=== PATIENT | female | born 1975 | race Caucasian/White ===

== ENCOUNTER → 2016-08-23 | Outpatient (CLI) | payer MEDICAID ==
[2016-08-23 14:38] VITALS: BP 110/57; PULSE 104; RESP 14; TEMP 98.5; BMI 36.2
[2016-08-23 15:32] LABS: CH 25.2; CHCM 31.3; HDW 3.04; HGB 11.2 gm/dL (11.4-16.0); Hypochromasia Moderate; MCH 25.1 pg (25.0-35.0); MCHC 31.1 g/dL (31.0-37.0); MCV 80.8 fL (80.0-100.0); Mean Platelet Volume 8.6; RBC 4.45 m/uL (3.80-5.40); RDW 15.7 % (11.5-15.5); WBC 6.2 k/uL (3.8-10.6)
[2016-08-23 15:38] LABS: ALT 45 U/L (9-52); AST 29 U/L (14-36); Alkaline Phosphatase 70 U/L (38-126); Anion Gap 10 mmol/L; Blood Urea Nitrogen 14 mg/dL (7-17); Calcium 9.2 mg/dL (8.4-10.2); Carbon Dioxide 27 mmol/L (22-30); Chloride 105 mmol/L (98-107); Cholesterol 145 mg/dL (<200); Glucose 84 mg/dL (74-99); HDL Cholesterol 44 mg/dL (40-60); Iron 39 ug/dL (37-170); Magnesium 2.2 mg/dL (1.6-2.3); Non-African American GFR(MDRD) >60 (>60 ml/min/1.73 sqM); Phosphorous 4.4 mg/dL (2.5-4.5); Potassium 4.1 mmol/L (3.5-5.1); Sodium 142 mmol/L (137-145); Total Bilirubin 0.4 mg/dL (0.2-1.3); Total Protein 6.9 g/dL (6.3-8.2); Triglycerides 302 mg/dL (<150)
[2016-08-23 15:40] LABS: Prothrombin Time 10.4 sec (9.0-12.0)
[2016-08-23 15:47] LABS: Partial Thromboplastin Time 22.2 sec (22.0-30.0)
[2016-08-23 15:48] LABS: % Iron Saturation 8.8 % (20-50); Prealbumin 27 mg/dL (18-36); Total Iron Binding Capacity 445 ug/dL (265-497)
[2016-08-23 16:43] LABS: Vitamin B12 >1000 pg/mL (239-931)
[2016-08-23 19:46] LABS: Hemoglobin A1C 5.6 % (4.2-6.1)
[2016-08-26 13:48] LABS: Selenium 118 mcg/L (63-160)
--- NOTE | 2016-10-01 19:43 | P.PN ---
Progress Note - Text DATE OF SERVICE: 08/23/2016 CHIEF COMPLAINT: Follow-up gastric bypass. HISTORY OF PRESENT ILLNESS: Letty Little is a 41-year-old female status post Ashwini-en-Y gastric bypass in September 21, 2015. She is almost 11 to 12 months out. She reports that she has troubles with eating bread. She is avoiding eating pastas. She is no longer actually checking her blood sugars. Approximately a year ago she was diagnosed with diabetes and now she reports complete resolution of her symptoms. She denies any constipation; however, she does report hair loss including fatigue. Her protein intake is averaging about 60 grams daily. Her main concerns now also include moderate redundant skin with panniculitis. Her initial weight was 325 pounds for her 5 foot 6 frame. Her ideal body weight is 154 pounds. Today she comes in weighing 224 pounds. She has lost 101 pounds. Percent excess weight loss is 69% after one year. Body mass index reduced from 52.6 down to 36.3. Total BMI point reduction is 16.3. She reports resolution of osteoarthritis including diabetes as well as obstructive sleep apnea. She now presents for further evaluation and management. Since her last visit in December 2015 now 8 months ago she has lost an additional 16 pounds. PAST MEDICAL HISTORY: 1. Osteoarthritis of the bilateral ankles. 2. Osteoarthritis of the knee. 3. Restless leg syndrome. 4. Panniculitis. 5. Biliary dyskinesia. 6. Gastroesophageal reflux disease. 7. Migraines. 8. Morbid obesity. 9. Diabetes type 2, [id number]. 10. Obstructive sleep apnea. PAST SURGICAL HISTORY: 1. D&C x2. 2. section. 3. Upper endoscopy. 4. Status post Ashwini-en-Y gastric bypass. MEDICATIONS: 1. Restoril. 2. Mirapex. 3. Nystatin powder. 4. Fioricet. 5. Ultram. 6. Sumatriptan. 7. Rogers. ALLERGIES: Denies. SOCIAL HISTORY: Lifelong nontobacco user. FAMILY HISTORY: Denies any Crohn's disease or ulcerative colitis in her family. Denies any gastrointestinal cancers. She denies any family history of gallbladder disease. She also denies any family history of lupus or DVTs. REVIEW OF SYSTEMS: CONSTITUTIONAL: Total weight loss of 101 pounds, highest weight 325 pounds. Her ideal body weight is 154 pounds. She lost 101 pounds. Percent excess 59%. Body mass index reduced from 52.6 down to 36.3. BMI point reduction of 16.3. She is only 70 pounds overweight. ENDOCRINE: Resolved diabetes type 2. No reports of thyroid disorders. CARDIOVASCULAR: Resolved hypertension. RESPIRATORY: Resolved obstructive sleep apnea. GASTROINTESTINAL: No reports of gastroesophageal reflux disease. MUSCULOSKELETAL: She reports increased symptoms of restless leg syndrome. NEURO: No reports of stroke or seizure disorder. PSYCH: No reports of depression or suicidal ideation. HEMATOLOGIC: Denies any easy bruising or bleeding. PHYSICAL EXAM: VITAL SIGNS: 98.5, 104, 14, 110/57, 5 foot 6, 224 pounds. Body mass index 36.3. ABDOMEN: Soft, nontender. Pannus extends over pubis by over 6 to 7 cm. Hyperemic consistent with panniculitis. No large palpable incisional hernias. GENERAL: Well-developed female in no acute distress. MUSCULOSKELETAL: No clubbing, cyanosis, or edema. CARDIOVASCULAR: Tachycardic. HEENT: No sclerae icterus. Extraocular movements grossly intact. Moist buccal mucosa. NECK: Supple without lymphadenopathy. CHEST: Nonlabored respirations with equal bilateral excursions. NEURO: No focal or lateralizing signs. PSYCH: Alert and oriented to person, place and time. LABS: Pending. ASSESSMENT: 1. Morbid obesity due to excess caloric intake. 2. Body mass index reduced from 52.6 down to 36.3. 3. Status post Ashwini-en-Y gastric bypass. 4. Restless leg syndrome. 5. Resolved obstructive sleep apnea. 6. Resolved diabetes type 2, not insulin-dependent. 7. Resolved hyperlipidemia. 8. Resolved osteoarthritis of lower back. 9. Resolved osteoarthritis of the bilateral knees. 10. Resolved gastroesophageal reflux disease. 11. Excess copper with elevated copper serum. 12. Clinical history of obstructive sleep apnea, resolved. 13. Vitamin D deficiency. 14. Gastroesophageal reflux disease, resolved. 15. Panniculitis. 16. Zinc deficiency. 17. Iron deficiency anemia. PLAN: 1. Recommend bariatric metabolic panel as she is now one year out. 2. She achieved 59% excess weight loss. 3. Despite using nystatin powder for over a year she still has recurrent symptoms of panniculitis. I recommend treatment with nystatin powder; however, she will best benefit from a panniculectomy as she has redundant skin. 4. Also recommend correction of her bariatric metabolic panel. 5. Benefits and risks of panniculectomy were described including flap failure, cosmetic deformity, anemia and infection were reviewed. ADDENDUM: LABS: Hemoglobin low at 11.2, RDW high at 15.7. Hyperchromasia is moderate. Percent iron saturation low 8.8. Ferritin low at 5. Triglycerides are elevated at 302. Vitamin B12 elevated at over 1000. Recommend zinc correction. Also recommend correction of her underlying anemia prior to surgical intervention with panniculectomy.
== END | disposition home or self-care (01) ==
LOC: BARWHC3 13:22
PROVIDERS: ATTEND Surgery Plastic and Reconstructive Surgery
DX: Z48.815 Encounter for surgical aftercare following surgery on the digestive system (principal); Z98.84 Bariatric surgery status; E66.01 Morbid (severe) obesity due to excess calories; Z71.3 Dietary counseling and surveillance; E21.1 Secondary hyperparathyroidism, not elsewhere classified; E89.1 Postprocedural hypoinsulinemia; D50.8 Other iron deficiency anemias; E44.0 Moderate protein-calorie malnutrition; E55.9 Vitamin D deficiency, unspecified; K74.1 Hepatic sclerosis; N19 Unspecified kidney failure; K90.9 Intestinal malabsorption, unspecified
CPT/HCPCS: 80053; 80061; 82306; 82525; 82607; 82728; 82746; 83036; 83540; 83550; 83735; 83970; 84100; 84134; 84255; 84425; 84443; 84590; 84630; 85027; 85610; 85730; 99211

== ENCOUNTER → 2017-01-26 | Outpatient (CLI) | payer MEDICAID ==
[2017-01-26 12:35] VITALS: BP 114/72; PULSE 96; TEMP 98.6; BMI 35.9
--- NOTE | 2017-02-18 14:14 | P.PN ---
Progress Note - Text DATE OF SERVICE: 01/26/2017 CHIEF COMPLAINT: Follow-up gastric bypass. HISTORY OF PRESENT ILLNESS: Letty Little is a 41-year-old female status post Ashwini-en-Y gastric bypass in September 21, 2015. Her initial weight was 325 pounds for her 5 foot 6 frame. Her ideal body weight is 154 pounds. Today she comes in weighing 222 pounds. She has lost 2 pounds in 5 months. Her total weight loss is 103 pounds. Percent excess weight loss is 60 % . Body mass index is reduced from 52.6 down to 35.9. She reports more than 2 years of panniculitis. Now she presents for further surgical intervention as she has been treated with prescribed Nystatin powders. PAST MEDICAL HISTORY: 1. Osteoarthritis of the bilateral ankles. 2. Osteoarthritis of the knee. 3. Restless leg syndrome. 4. Panniculitis. 5. Biliary dyskinesia. 6. Gastroesophageal reflux disease. 7. Migraines. 8. Morbid obesity. 9. Diabetes type 2, [id number]. 10. Obstructive sleep apnea. PAST SURGICAL HISTORY: 1. D&C x2. 2. section. 3. Upper endoscopy. 4. Status post Ashwini-en-Y gastric bypass. MEDICATIONS: 1. Restoril. 2. Mirapex. 3. Nystatin powder. 4. Fioricet. 5. Ultram. 6. Sumatriptan. 7. [place]. ALLERGIES: Denies. SOCIAL HISTORY: Lifelong nontobacco user. FAMILY HISTORY: Denies any Crohn's disease or ulcerative colitis in her family. Denies any gastrointestinal cancers. She denies any family history of gallbladder disease. She also denies any family history of lupus or DVTs. REVIEW OF SYSTEMS: CONSTITUTIONAL: Total weight loss of 101 pounds, highest weight 325 pounds. Her ideal body weight is 154 pounds. She lost 103 pounds. Percent excess 60%. Body mass index reduced from 52.6 down to 35.9. BMI point reduction of 16.6. She is only 68 pounds overweight. ENDOCRINE: Resolved diabetes type 2. No reports of thyroid disorders. CARDIOVASCULAR: Resolved hypertension. Improved hyperlipidemia. RESPIRATORY: Resolved obstructive sleep apnea. No pneumonia. GASTROINTESTINAL: No reports of gastroesophageal reflux disease. MUSCULOSKELETAL: She reports increased symptoms of restless leg syndrome. NEURO: No reports of stroke or seizure disorder. PSYCH: No reports of depression or suicidal ideation. HEMATOLOGIC: Denies any easy bruising or bleeding. SKIN: His current panniculitis. No reports of skin cancer. PHYSICAL EXAM: VITAL SIGNS: 5 foot 6, 222 pounds. Body mass index 35.9. Vital Signs 01/26/17 12:28 Temperature 98.6 F Pulse Rate 96 Blood Pressure 114/72 ABDOMEN: Soft, nontender. Pannus extends over pubis by over 6 to 7 cm. Hyperemic consistent with panniculitis. Weight of pannus over 5-10 pounds. GENERAL: Well-developed female in no acute distress. MUSCULOSKELETAL: No clubbing, cyanosis, or edema. CARDIOVASCULAR: Tachycardic. HEENT: No sclerae icterus. Extraocular movements grossly intact. Moist buccal mucosa. NECK: Supple without lymphadenopathy. CHEST: Nonlabored respirations with equal bilateral excursions. NEURO: No focal or lateralizing signs. PSYCH: Alert and oriented to person, place and time. SKIN: Well perfused. Good skin turgor. Has panniculitis. LABS: Reviewed. ASSESSMENT: 1. Morbid obesity due to excess caloric intake. 2. Body mass index reduced from 52.6 down to 35.9. 3. Status post Ashwini-en-Y gastric bypass. 4. Restless leg syndrome. 5. Resolved obstructive sleep apnea. 6. Resolved diabetes type 2, not insulin-dependent. 7. Resolved hyperlipidemia. 8. Resolved osteoarthritis of lower back. 9. Resolved osteoarthritis of the bilateral knees. 10. Resolved gastroesophageal reflux disease. 11. Excess copper with elevated copper serum. 12. Clinical history of obstructive sleep apnea, resolved. 13. Vitamin D deficiency. 14. Gastroesophageal reflux disease, resolved. 15. Panniculitis. 16. Zinc deficiency. 17. Iron deficiency anemia. PLAN: 1. Recommend panniculectomy for chronic panniculitis. 2. Benefits and risks of panniculectomy were described in detail including bleeding, infection, flap failure, need for further surgery, chronic pain. 3. DVT prophylaxis. 4. Antibiotic prophylaxis. 5. Will need iron infusion while inpatient. 6. We have reviewed abdominal binders and need for postop care to minimize risk for seromas. 7. MARYLOU teaching advised.
== END | disposition home or self-care (01) ==
LOC: BARWHC3 12:09
PROVIDERS: ATTEND Surgery Plastic and Reconstructive Surgery
DX: Z01.818 Encounter for other preprocedural examination (principal); E66.01 Morbid (severe) obesity due to excess calories; G25.81 Restless legs syndrome; R79.0 Abnormal level of blood mineral; E55.9 Vitamin D deficiency, unspecified; K21.9 Gastro-esophageal reflux disease without esophagitis; M79.3 Panniculitis, unspecified; E60 Dietary zinc deficiency; D50.9 Iron deficiency anemia, unspecified; E11.9 Type 2 diabetes mellitus without complications; M19.072 Primary osteoarthritis, left ankle and foot; M19.071 Primary osteoarthritis, right ankle and foot; M17.0 Bilateral primary osteoarthritis of knee; Z68.35 Body mass index [BMI] 35.0-35.9, adult; Z98.84 Bariatric surgery status; Z79.899 Other long term (current) drug therapy
CPT/HCPCS: 99211

== ENCOUNTER → 2017-01-26 | Outpatient (CLI) | payer MEDICAID ==
[2017-01-26 11:22] LABS: EKG EKG PERFORMED
[2017-01-26 11:36] LABS: Anisocytosis Slight; Basophils # (A) 0.1 k/uL (0-0.2); Basophils % (A) 1 %; CHCM 30.9; Eosinophils # (A) 0.1 k/uL (0-0.7); Eosinophils % (A) 1 %; HCT 39.1 % (34.0-46.0); HDW 3.02; Hypochromasia Moderate; Luc # (Auto) 0.16; Luc % (Auto) 2; Lymphocytes # (A) 1.9 k/uL (1.0-4.8); Lymphocytes % (A) 22 %; MCH 24.1 pg (25.0-35.0); MCHC 30.8 g/dL (31.0-37.0); MCV 78.1 fL (80.0-100.0); Mean Platelet Volume 8.4; Microcytosis Slight; Monocytes # (A) 0.5 k/uL (0-1.0); Monocytes % (A) 6 %; Neutrophils # (A) 5.7 k/uL (1.3-7.7); Neutrophils % (A) 68 %; WBC 8.3 k/uL (3.8-10.6); WBC (Perox) 8.16
[2017-01-26 11:43] LABS: Chloride 105 mmol/L (98-107); Glucose 85 mg/dL (74-99); Potassium 4.1 mmol/L (3.5-5.1); Total Protein 7.3 g/dL (6.3-8.2)
[2017-01-26 11:44] LABS: ALT 41 U/L (9-52); AST 26 U/L (14-36); Alkaline Phosphatase 65 U/L (38-126); Anion Gap 10 mmol/L; Blood Urea Nitrogen 16 mg/dL (7-17); Calcium 9.5 mg/dL (8.4-10.2); Carbon Dioxide 25 mmol/L (22-30); Non-African American GFR(MDRD) >60 (>60 ml/min/1.73 sqM); Sodium 140 mmol/L (137-145); Total Bilirubin 0.4 mg/dL (0.2-1.3)
== END | disposition home or self-care (01) ==
LOC: LABPAT 11:13
PROVIDERS: ATTEND Surgery Plastic and Reconstructive Surgery
DX: Z01.818 Encounter for other preprocedural examination (principal)
CPT/HCPCS: 80053; 85025; 93005

== ENCOUNTER 2017-02-05 07:30 | Inpatient (IN) | payer MEDICAID ==
[~2017-02-05 07:30] MED LIST: DEXAMETHASONE SOD PHOSPHATE 10 MG/ML 1 ML VIAL IV ONE; HYDROmorphone 1 MG/ML 1 ML SYRINGE IVP ONE; HYDROmorphone 1 MG/ML 1 ML SYRINGE IVP PRN; MIDAZOLAM 2 MG/2 ML VIAL IV PRN; ONDANSETRON 4 MG/2 ML VIAL IVP ONE; SCOPOLAMINE 1.5MG/72HR PATCH TRANSDERM ONE; ceFAZolin 2 GM in SODIUM CHLORIDE 0.9% 100 ML IVPB ONE
[2017-02-05] MEDS ORDERED: LIDOCAINE 1% 20 ML VIAL (10MG/ML) FOR IV START INTRADERMA ONE (09:59)
[2017-02-05] MEDS: LACTATED RINGERS 1,000 ML IV SCH (10:00)
--- NOTE | 2017-02-05 11:59 | P.GSHP ---
History of Present Illness H&P Date: 02/05/17 CHIEF COMPLAINT: Panniculitis. HISTORY OF PRESENT ILLNESS: Letty Little is a 41-year-old female status post Ashwini-en-Y gastric bypass in September 21, 2015. She is almost over 1 year out. Her main concerns now also include moderate redundant skin with panniculitis. Her initial weight was 325 pounds for her 5 foot 6 frame. Her ideal body weight is 154 pounds. Today she comes in weighing 220 pounds. She has lost 105 pounds. Percent excess weight loss is over 60% after one year. Body mass index reduced from 52.6 down to 35.7. She presents for a panniculectomy. PAST MEDICAL HISTORY: 1. Osteoarthritis of the bilateral ankles. 2. Osteoarthritis of the knee. 3. Restless leg syndrome. 4. Panniculitis. 5. Biliary dyskinesia. 6. Gastroesophageal reflux disease. 7. Migraines. 8. Morbid obesity. 9. Diabetes type 2, [id number]-aorquntpe. 10. Obstructive sleep apnea. PAST SURGICAL HISTORY: 1. D&C x2. 2. section. 3. Upper endoscopy. 4. Status post Ashwini-en-Y gastric bypass. MEDICATIONS: 1. Restoril. 2. Mirapex. 3. Nystatin powder. 4. Fioricet. 5. Ultram. 6. Sumatriptan. 7. Ava. ALLERGIES: Denies. SOCIAL HISTORY: Lifelong nontobacco user. FAMILY HISTORY: Denies any Crohn's disease or ulcerative colitis in her family. Denies any gastrointestinal cancers. She denies any family history of gallbladder disease. She also denies any family history of lupus or DVTs. REVIEW OF SYSTEMS: CONSTITUTIONAL: Total weight loss of 105 pounds, highest weight 325 pounds. Her ideal body weight is 154 pounds. She lost 105 pounds. ENDOCRINE: Resolved diabetes type 2. No reports of thyroid disorders. CARDIOVASCULAR: Resolved hypertension. RESPIRATORY: Resolved obstructive sleep apnea. GASTROINTESTINAL: No reports of gastroesophageal reflux disease. MUSCULOSKELETAL: She reports increased symptoms of restless leg syndrome. NEURO: No reports of stroke or seizure disorder. PSYCH: No reports of depression or suicidal ideation. HEMATOLOGIC: Denies any easy bruising or bleeding. PHYSICAL EXAM: VITAL SIGNS: Stable, 5 foot 6, 220 pounds. Body mass index 35.7 ABDOMEN: Soft, nontender. Pannus extends over pubis by over 6 to 7 cm. Hyperemic consistent with panniculitis. No large palpable incisional hernias. GENERAL: Well-developed female in no acute distress. MUSCULOSKELETAL: No clubbing, cyanosis, or edema. CARDIOVASCULAR: Tachycardic. HEENT: No sclerae icterus. Extraocular movements grossly intact. Moist buccal mucosa. NECK: Supple without lymphadenopathy. CHEST: Nonlabored respirations with equal bilateral excursions. NEURO: No focal or lateralizing signs. PSYCH: Alert and oriented to person, place and time. LABS: Pending. ASSESSMENT: 1. Morbid obesity due to excess caloric intake. 2. Body mass index reduced from 52.6 down to 35.7 3. Status post Ashwini-en-Y gastric bypass. 4. Restless leg syndrome. 5. Resolved obstructive sleep apnea. 6. Resolved diabetes type 2, not insulin-dependent. 7. Resolved hyperlipidemia. 8. Resolved osteoarthritis of lower back. 9. Resolved osteoarthritis of the bilateral knees. 10. Resolved gastroesophageal reflux disease. 11. Excess copper with elevated copper serum. 12. Clinical history of obstructive sleep apnea, resolved. 13. Vitamin D deficiency. 14. Gastroesophageal reflux disease, resolved. 15. Panniculitis. PLAN: 1. She achieved 59% excess weight loss. 2. Despite using nystatin powder for over a year she still has recurrent symptoms of panniculitis. Recommend panniculectomy as she has redundant skin. 3. Benefits and risks of panniculectomy were described including flap failure, cosmetic deformity, anemia and infection were reviewed. 4. DVT prophylaxis. 5. Antibiotic prophylaxis. 6. Inpatient hospitalization anticipated less than 2 nights. Past Medical History Past Medical History: Diabetes Mellitus, GERD/Reflux Additional Past Medical History / Comment(s): Migraines History of Any Multi-Drug Resistant Organisms: None Reported Past Surgical History: Bariatric Surgery, Section Additional Past Surgical History / Comment(s): D&C x2 RY 09/20/15 Past Anesthesia/Blood Transfusion Reactions: No Reported Reaction Past Psychological History: No Psychological Hx Reported Smoking Status: Never smoker Past Alcohol Use History: None Reported Past Drug Use History: None Reported - Past Family History Mother Family Medical History: Cancer Additional Family Medical History / Comment(s): Breast CA Sister(s) Family Medical History: Thyroid Disorder Medications and Allergies Home Medications Medication Instructions Recorded Confirmed Type SUMAtriptan SUCCINATE [Imitrex] 100 mg PO DIRECTED PRN 01/07/15 02/05/17 History SUMAtriptan SUCCINATE [Sumavel 6 mg SQ DAILY PRN 02/09/15 02/05/17 History Dosepro] traMADol HCl [Ultram] 100 mg PO Q6HR PRN 09/15/15 02/05/17 History Hydrocodone/Acetaminophen [Ava 10 - 325 mg PO BID 08/24/16 02/05/17 History 7.5-325] Pramipexole [Mirapex] 1 mg PO DAILY 08/24/16 02/05/17 History Temazepam [Restoril] 30 mg PO HS PRN 08/24/16 02/05/17 History Calcium Carbonate [Calcium] 600 mg PO DAILY 01/24/17 02/05/17 History Cholecalciferol (Vitamin D3) 2,000 unit PO DAILY 01/24/17 02/05/17 History [Vitamin D3] Ferrous Sulfate [Feosol] 325 mg PO BID 01/24/17 02/05/17 History Multivitamin [Children's 2 each PO DAILY 01/24/17 02/05/17 History Multivitamins] tiZANidine HCL [Zanaflex] 8 mg PO BID 01/24/17 02/05/17 History Allergies Allergy/AdvReac Type Severity Reaction Status Date / Time NSAIDS (Non-Steroidal AdvReac Swelling Verified 01/26/17 12:31 Anti-Inflamma Surgical - Exam Vital Signs Temp Pulse Resp BP Pulse Ox 97.4 F L 70 16 115/72 99 02/05/17 09:38 02/05/17 09:38 02/05/17 09:38 02/05/17 09:38 02/05/17 09:38
[2017-02-05] MEDS ORDERED: HEPARIN SODIUM,PORCINE 5,000 UNIT/ML 1 ML VIAL SQ STA (12:00)
[2017-02-05] MEDS ORDERED: ONDANSETRON 4 MG/2 ML VIAL ONE (12:29)
[2017-02-05] MEDS ORDERED: NEOSTIGMINE 1 MG/ML 10 ML VIAL ONE (12:29)
[2017-02-05] MEDS ORDERED: GLYCOPYRROLATE 0.2 MG/ML 2 ML VIAL ONE (12:29)
[2017-02-05] MEDS ORDERED: fentaNYL (PF) 50 MCG/ML 2 ML AMP ONE (12:29)
[2017-02-05] MEDS ORDERED: MIDAZOLAM 2 MG/2 ML VIAL ONE (12:29)
[2017-02-05] MEDS ORDERED: SUCCINYLCHOLINE CHLORIDE VIAL 200 MG/10 ML VIAL IV ONE (12:29)
[2017-02-05] MEDS ORDERED: PROPOFOL 10 MG/ML 20 ML VIAL IV ONE (12:29)
[2017-02-05] MEDS ORDERED: HYDROmorphone (PF) 1 MG/ML ONE (12:29)
[2017-02-05] MEDS ORDERED: LIDOCAINE 1% INJ 10MG/ML (20 ML MDV) ONE (12:29)
[2017-02-05] MEDS ORDERED: ePHEDrine 50 MG/ML 1 ML AMP ONE (12:29)
[2017-02-05] MEDS ORDERED: ROCURONIUM BROMIDE 10 MG/ML 10 ML VIAL IV ONE (12:29)
[2017-02-05] MEDS ORDERED: BUPIVACAINE (PF) 0.5% 30 ML VIAL SQ ONE (13:08)
[2017-02-05] MEDS ORDERED: LACTATED RINGERS 1,000 ML IV ONE ×2 (14:55→15:10)
[2017-02-05] MEDS ORDERED: NALOXONE 0.4 MG/ML 1 ML VIAL IV PRN (16:28)
[2017-02-05] MEDS ORDERED: ONDANSETRON 4 MG/2 ML VIAL IVP PRN (16:28)
--- NOTE | 2017-02-05 16:29 | P.PCN ---
Date of Procedure: 02/05/17 Preoperative Diagnosis: Panniculitis Postoperative Diagnosis: Panniculitis, reducible ventral hernia 13 x 24 cm Procedure(s) Performed: Panniculectomy 10.66 pounds, ventral hernia repair primary without mesh 13 x 24 cm Implants: Anesthesia: GETA, local Surgeon: Pao Savage Estimated Blood Loss (ml): 400 Pathology: none sent Condition: stable Disposition: floor Indications for Procedure: Operative Findings: Description of Procedure:
[2017-02-05] MEDS ORDERED: SUMAtriptan SUCCINATE 6 MG/0.5 ML VIAL SQ PRN (16:31)
[2017-02-05] MEDS ORDERED: SUMAtriptan SUCCINATE 50 MG TAB PO PRN (16:31)
[2017-02-05] MEDS ORDERED: traMADol 50 MG TAB PO PRN (16:31)
[2017-02-05] MEDS ORDERED: MEPERIDINE 50 MG/ML SYRINGE IVP ONE (16:34)
[2017-02-05] MEDS ORDERED: MIDAZOLAM 2 MG/2 ML VIAL IVP ONE ×2 (16:35→17:18)
--- NOTE | 2017-02-05 16:48 | P.OP ---
Date of Procedure: 02/05/17 Preoperative Diagnosis: Postoperative Diagnosis: Procedure(s) Performed: Implants: Indications for Procedure: Operative Findings: Description of Procedure: SURGEON: JUNITO TORRES MD MAILING CLERK: 1. HARMEET ZENDEJAS 2. ADRIANNA MARIN. PREOPERATIVE DIAGNOSES: 1. Morbid obesity due to excess caloric intake. 2. Body mass index reduced from 52.6 down to 35.7 3. Status post Ashwini-en-Y gastric bypass. 4. Status post massive weight loss, 105 pounds. 5. Panniculitis, involving the abdomen. 6. Restless leg syndrome. 7. Chronic pain syndrome. 8. Iron deficiency anemia. 9. Vitamin D deficiency. POSTOPERATIVE DIAGNOSES: 1. Morbid obesity due to excess caloric intake. 2. Body mass index reduced from 52.6 down to 35.7 3. Status post Ashwini-en-Y gastric bypass. 4. Status post massive weight loss, 105 pounds. 5. Panniculitis, involving the abdomen. 6. Restless leg syndrome. 7. Chronic pain syndrome. 8. Iron deficiency anemia. 9. Vitamin D deficiency. 10. Ventral hernia, 13 x 24 cm, initial and reducible. OPERATION: 1. Panniculectomy, 10.68 pounds. 2. Primary repair of ventral hernia 13 x 24 cm without mesh. ANESTHESIA: General with 1:1 60mL 0.50% mL sensorcaine and 60 mL normal saline mixture. ESTIMATED BLOOD LOSS: 400 mL SPECIMENS REMOVED: Pannus 10.86 pounds. COMPLICATIONS: None. CONDITION: Stable. DRAINS: Two #19 Josh drains below abdominal flap extending through the pubis. OPERATIVE FINDINGS: 1. Pannus weighing 10.86 pounds, excised. 2. Abdominal ventral hernia of 13 x 24 cm along the midline repaired primarily using fascial imbrication. INDICATIONS: Letty Little is a 41-year-old female status post Ashwini-en-Y gastric bypass in September 21, 2015. She is almost over 1 year out. Her main concerns now also include moderate redundant skin with panniculitis. Her initial weight was 325 pounds for her 5 foot 6 frame. Her ideal body weight is 154 pounds. Today she comes in weighing 220 pounds. She has lost 105 pounds. Percent excess weight loss is over 60% after one year. Body mass index reduced from 52.6 down to 35.7. She presents for a panniculectomy. Despite medical therapy with prescription powders such as Nystatin over 1 year, she has developed severe medical refractory panniculitis. Benefits and risks of the procedure including bleeding, infection, cosmetic deformity, abdominal seromas, placement of drains, risk of flap failure were described at length. Informed consent was obtained. DESCRIPTION: In the preanesthesia care unit the patient was marked with an indelible marker. She had also been given heparin subcutaneously. The patient was brought into the operating room and laid in supine position. After general induction, a Montalvo catheter was placed. The abdomen was then prepped and draped in standard sterile fashion using ChloraPrep. The skin was prepped as far laterally to the back, inferiorly to the upper thighs and superiorly to above the bilateral breasts. A timeout protocol was confirmed with the surgical team regarding patient's name , procedure to be performed, including preoperative medications. She had received Ancef 2 grams IV antibiotics. Once the time-out protocol was confirmed with the surgical team, the patient was re-marked with indelible marker whereby the midline of the xiphoid to the mons pubis was marked. The anterior/superior iliac spine along the bilateral hips was also marked. At 8 cm above the pubis commissure a transverse incision was made for the inferior portion of the flap. Using a #10 blade, the incision was taken from the midline laterally to above the anterior/superior iliac spine, initially on the left side of the patient and then on the right side of the patient. Electro-Bovie cautery was used to control for hemostasis. The dissection was taken down to the level of the fascia. Landmarks used were the xiphoid process as well as the bilateral costal margins for the superior margin. Care was taken to avoid any creation of dog ears during the dissection. Once hemostasis was checked, a large ventral hernia fascial defect of 13 x 24 cm was identified unrelated to her bariatric procedure. During this dissection , the umbilicus was truncated at its fascial insertion. The umbilicus fascial excision was oversewn using 0-Vicryl. Starting from the xiphoid process, fascial imbrication was performed using #2 Ethibond. Multiple facial imbrications at least 4 layers were performed. The ventral hernia defect was completely repaired and closed. For postop analgesia, 1:1 60 mL of 0.50% sensorcaine and 60 mL normal saline mixture was infiltrated along the midline skin flaps. Hemostasis was once again checked with electro-Bovie cautery and all defects were addressed. Attention was now brought to closure of the flap. Using stainless steel skin carrie, the midline was once again marked of the upper flap as well as the pubic commissure. The patient was placed in a flexed position of approximately 30 degrees at the hips. The pannus was extended inferiorly to the feet. The upper flap was created once the excess skin was excised. Again care was taken to avoid any dog ears along the lateral aspect of the incisions. Once excised, the pannus was weighed at 10.68 pounds. The upper and lower flaps were reapproximated at the midline and then laterally to the skin with skin carrie. Once reapproximated, the skin was closed in layers using 0 Vicryl for the superficial fascial system followed by running 3- 0 Monocryl for the deep dermis in a running subcuticular fashion. Prior to skin closure, two round #19 Josh drains were placed underneath the flap and brought out just inferior to the incision along the pubis. Drain stitch using 2-0 nylon was placed. Once the incision was closed, bulb suction was attached. Hemostasis was checked. At the end of the procedure, the needle, sponge and instrument count was verified correct. The skin was cleansed with hydrogen peroxide. Dermabond tape including adhesive was placed along the length of the incision. Optifoam long silver dressing was also placed over the incision. Small optifoam dressing was placed over the MARYLOU sites. The patient was then transferred to a hospital bed in a beach chair position. An abdominal binder was placed and marked. The patient was taken to the postanesthesia care unit in stable condition, awake and extubated. Total time for procedure from skin to skin was 176 minutes. The intraoperative findings were discussed with her over the phone who was pleased with the level of care.
[2017-02-05 17:54] VITALS: BMI 35.6
[2017-02-05] MEDS: HYDROmorphone 1 MG/ML 1 ML SYRINGE IVP PRN ×2 (17:56→18:35)
[2017-02-05] MEDS: HYDROcodone/APAP 10-325MG 1 EACH TAB PO PRN (19:23)
[2017-02-05] MEDS: 0.9% NACL WITH KCL 20 MEQ/L 1,000 ML IV SCH (19:23)
[2017-02-05] MEDS ORDERED: TEMAZEPAM 30 MG CAP PO PRN (21:00)
[2017-02-05] MEDS: HYDROmorphone 2 MG/ML 1 ML SYRINGE IVP PRN (21:36)
[2017-02-05] MEDS: ceFAZolin 2 GM in SODIUM CHLORIDE 0.9% 100 ML IVPB SCH (21:36)
[2017-02-05] MEDS: FAMOTIDINE 20 MG TAB PO SCH (21:36)
[2017-02-05] MEDS: tiZANidine 4 MG TAB PO SCH (22:10)
[2017-02-06] MEDS: HYDROmorphone 2 MG/ML 1 ML SYRINGE IVP PRN ×3 (00:40→06:51)
[2017-02-06] MEDS: 0.9% NACL WITH KCL 20 MEQ/L 1,000 ML IV SCH ×2 (04:52→09:50)
[2017-02-06] MEDS: ceFAZolin 2 GM in SODIUM CHLORIDE 0.9% 100 ML IVPB SCH (05:57)
[2017-02-06 07:34] VITALS: BP 130/58; PULSE 97; RESP 16; TEMP 99.6
[2017-02-06 07:47] LABS: Anisocytosis Slight; Basophils % (A) 0 %; CH 23.5; CHCM 29.7; Eosinophils # (A) 0.1 k/uL (0-0.7); Eosinophils % (A) 1 %; HCT 30.6 % (34.0-46.0); HDW 2.86; Hypochromasia Marked; Luc # (Auto) 0.18; Luc % (Auto) 2; Lymphocytes % (A) 25 %; MCH 23.6 pg (25.0-35.0); MCHC 29.6 g/dL (31.0-37.0); MCV 79.7 fL (80.0-100.0); Mean Platelet Volume 8.4; Microcytosis Slight; Monocytes # (A) 0.4 k/uL (0-1.0); Monocytes % (A) 5 %; Neutrophils # (A) 5.3 k/uL (1.3-7.7); Neutrophils % (A) 67 %; RBC 3.84 m/uL (3.80-5.40); RDW 17.8 % (11.5-15.5); WBC 7.9 k/uL (3.8-10.6); WBC (Perox) 8.64
[2017-02-06 07:53] LABS: HGB 9.1 gm/dL (11.4-16.0)
[2017-02-06] MEDS ORDERED: 1: MVI, ADULT NO.4 WITH VIT K 10 ML, THIAMINE 100 MG, FOLIC ACID 1 MG, POTASSIUM CHLORID IV SCH ×6 (08:00)
[2017-02-06] MEDS: LACTATED RINGERS 1,000 ML IV SCH (08:11)
[2017-02-06] MEDS ORDERED: ENOXAPARIN 40 MG/0.4 ML SYRINGE SQ SCH (09:00)
[2017-02-06] MEDS ORDERED: PRAMIPEXOLE 1 MG TAB PO SCH ×2 (09:00→21:00)
[2017-02-06] MEDS ORDERED: SODIUM FERRIC GLUCONAT-SUCROSE 125 MG in SODIUM CHLORIDE 0.9% 100 ML IVPB ONE (09:45)
[2017-02-06] MEDS: HYDROcodone/APAP 10-325MG 1 EACH TAB PO PRN (09:47)
[2017-02-06] MEDS: tiZANidine 4 MG TAB PO SCH (09:50)
[2017-02-06] MEDS: FAMOTIDINE 20 MG TAB PO SCH (09:50)
--- NOTE | 2017-02-06 10:14 | P.PN ---
Progress Note - Text Patient seen and evaluated. Pain is well-controlled. Home care instructions reviewed. She is ambulating. Patient expresses wanting to go home.
[2017-02-07] MEDS ORDERED: BISACODYL 5 MG TABLET.DR PO PRN (08:00)
[2017-02-07] MEDS ORDERED: SODIUM FERRIC GLUCONAT-SUCROSE 125 MG in SODIUM CHLORIDE 0.9% 100 ML IVPB SCH (09:00)
--- NOTE | 2017-02-07 09:31 | P.PN ---
Subjective Principal diagnosis: Panniculitis The patient is a 41-year-old female postop day 1 status post panniculectomy including ventral hernia repair. No reports of nausea and vomiting. Her pain is well-controlled. She is ambulating. Her is at bedside assisting with her care. Objective - Vital Signs Vital signs: Vital Signs Temp 99.6 F 02/06/17 07:00 Pulse 97 02/06/17 07:00 Resp 16 02/06/17 07:00 BP 130/58 02/06/17 07:00 Pulse Ox 94 L 02/06/17 07:48 Intake & Output 02/05/17 02/06/17 02/06/17 18:59 06:59 18:59 Intake Total 3100 1800 Output Total 895 560 115 Balance 2205 1240 -115 Weight 100.2 kg Intake: IV 3000 Intake, IV Titration 1800 Amount 0.9% NaCl with KCl 20 Meq 1600 /l 1,000 ml @ 150 mls/hr IV .[id number] GO Rx#: [id number] ceFAZolin 2 gm In Sodium 200 Chloride 0.9% 100 ml @ 100 mls/hr IVPB Q8H GO Rx#:[id number] Oral 100 Output: Drainage 70 310 115 Left Abdomen 50 110 85 Right Abdomen 20 200 30 Urine 400 250 Estimated Blood Loss 425 - Exam GENERAL: Well developed and in no acute distress. Pleasant. HEENT: No sclera icterus. Extraocular movements grossly intact. Moist buccal mucosa. Head is atraumatic, normocephalic. Hears conversational speech. No nasal drainage. NECK: Supple without lymphadenopathy. No JV distention. CHEST: Non-labored respirations and equal bilateral excursions. CARDIOVASCULAR: Regular rate and rhythm. Palpable 2+ radial pulses. ABDOMEN: Soft, nontender. Nondistended. Dressings clean dry and intact. Abdominal binder present. MUSCULOSKELETAL: No clubbing, cyanosis or edema. NEUROLOGIC: No focal or lateralizing signs. PSYCH: Appropriate affect. Alert and oriented to person, place and time. - Labs CBC & Chem 7: 02/06/17 06:58 Labs: Abnormal Lab Results - Last 24 Hours (Table) 02/06/17 Range/Units 06:58 Hgb 9.1 L D (11.4-16.0) gm/dL Hct 30.6 L (34.0-46.0) % MCV 79.7 L (80.0-100.0) fL MCH 23.6 L (25.0-35.0) pg MCHC 29.6 L (31.0-37.0) g/dL RDW 17.8 H (11.5-15.5) % Assessment and Plan (1) Panniculitis Status: Acute (2) Ventral hernia Status: Acute (3) Bariatric surgery status Status: Acute (4) Chronic pain Status: Acute (5) Fibromyalgia Status: Acute (6) Iron deficiency anemia Status: Acute (7) BMI 35.0-35.9,adult Status: Acute (8) Morbid obesity Status: Acute Plan: 1. She has her pain medications felt as she is on a pain contract with her primary care provider. 2. Continue with abdominal binder. 3. She has received iron infusion for history of iron deficiency anemia. 4. No lifting over 4 pounds in 4 weeks. 5. Follow-up in the bariatric center in 72 hours. 6. No shower or bath tub soaks. 7. Dressings to be discontinued in the bariatric office.
--- NOTE | 2017-02-07 09:41 | P.DS ---
Providers Date of admission: 02/05/17 09:21 Expected date of discharge: 02/06/17 Attending physician: Pao Savage Primary care physician: Stated None - Discharge Diagnosis(es) (1) Panniculitis Status: Acute (2) Ventral hernia Status: Acute (3) Bariatric surgery status Status: Acute (4) Chronic pain Status: Acute (5) Fibromyalgia Status: Acute (6) Iron deficiency anemia Status: Acute (7) BMI 35.0-35.9,adult Status: Acute (8) Morbid obesity Status: Acute Hospital Course: 1. Morbid obesity due to excess caloric intake. 2. Body mass index reduced from 52.6 down to 35.7 3. Status post Ashwini-en-Y gastric bypass. 4. Status post massive weight loss, 105 pounds. 5. Panniculitis, involving the abdomen. 6. Restless leg syndrome. 7. Chronic pain syndrome. 8. Iron deficiency anemia. 9. Vitamin D deficiency. 10. Ventral hernia, 13 x 24 cm, initial and reducible. COURSE: Letty Little is a 41-year-old female status post Ashwini-en-Y gastric bypass in September 21, 2015. She is almost over 1 year out. Her main concerns now also include moderate redundant skin with panniculitis. Her initial weight was 325 pounds for her 5 foot 6 frame. Her ideal body weight is 154 pounds. Today she comes in weighing 220 pounds. She has lost 105 pounds. Percent excess weight loss is over 60% after one year. Body mass index reduced from 52.6 down to 35.7. She presented for a panniculectomy. Postoperatively, her pain was well controlled. She was ambulating. teaching was stressed. Pertinent Studies: None. Procedures: OPERATION: 1. Panniculectomy, 10.68 pounds. 2. Primary repair of ventral hernia 13 x 24 cm without mesh. Patient Condition at Discharge: Stable Plan - Discharge Summary New Discharge Prescriptions: No Action SUMAtriptan SUCCINATE [Imitrex] 100 mg PO DAILY PRN PRN Reason: Migraine Headache SUMAtriptan SUCCINATE [Sumavel Dosepro] 6 mg SQ DAILY PRN PRN Reason: Migraine Headache traMADol HCl [Ultram] 100 mg PO Q6HR PRN PRN Reason: Pain Hydrocodone/Acetaminophen [[place] 7.5-325] 1 tab PO BID Temazepam [Restoril] 30 mg PO HS PRN PRN Reason: Insomnia Pramipexole [Mirapex] 1 mg PO HS Ferrous Sulfate [Feosol] 325 mg PO BID Cholecalciferol (Vitamin D3) [Vitamin D3] 2,000 unit PO DAILY Multivitamin [Children's Multivitamins] 2 tab PO DAILY Calcium Carbonate [Calcium] 600 mg PO DAILY tiZANidine [Zanaflex] 8 mg PO BID Discharge Medication List SUMAtriptan SUCCINATE [Imitrex] 100 mg PO DAILY PRN 01/07/15 [History] SUMAtriptan SUCCINATE [Sumavel Dosepro] 6 mg SQ DAILY PRN 02/09/15 [History] traMADol HCl [Ultram] 100 mg PO Q6HR PRN 09/15/15 [History] Hydrocodone/Acetaminophen [[place] 7.5-325] 1 tab PO BID 08/24/16 [History] Pramipexole [Mirapex] 1 mg PO HS 08/24/16 [History] Temazepam [Restoril] 30 mg PO HS PRN 08/24/16 [History] Calcium Carbonate [Calcium] 600 mg PO DAILY 01/24/17 [History] Cholecalciferol (Vitamin D3) [Vitamin D3] 2,000 unit PO DAILY 01/24/17 [History] Ferrous Sulfate [Feosol] 325 mg PO BID 01/24/17 [History] Multivitamin [Children's Multivitamins] 2 tab PO DAILY 01/24/17 [History] tiZANidine [Zanaflex] 8 mg PO BID 02/05/17 [History] Follow up Appointment(s)/Referral(s): Pao Savage MD [STAFF PHYSICIAN] - 02/09/17 10:00 am (Bariatric center) Patient Instructions/Handouts: Belt Lipectomy (GEN) Activity/Diet/Wound Care/Special Instructions: No lifting over 4 pounds. Sponge bath only. Keep outputs of JPs. Walked with hips flexed. Discharge Disposition: HOME SELF-CARE
== END 2017-02-06 12:50 | disposition home or self-care (01) | DRG 581 ==
LOC: 2ORWHC 09:21 → 3SUR 16:04
PROVIDERS: ADMIT Surgery Plastic and Reconstructive Surgery; ATTEND Surgery Plastic and Reconstructive Surgery
PROC: 0WBF0ZZ Excision of Abdominal Wall, Open Approach (ICD-10-PCS; principal; 2017-02-05 10:30)
PROC: 0WQF0ZZ Repair Abdominal Wall, Open Approach (ICD-10-PCS; 2017-02-05 10:30)
DX: M79.3 Panniculitis, unspecified (principal); E66.01 Morbid (severe) obesity due to excess calories; E55.9 Vitamin D deficiency, unspecified; G47.33 Obstructive sleep apnea (adult) (pediatric); D50.9 Iron deficiency anemia, unspecified; E11.9 Type 2 diabetes mellitus without complications; Z68.35 Body mass index [BMI] 35.0-35.9, adult; G25.81 Restless legs syndrome; G43.909 Migraine, unspecified, not intractable, without status migrainosus; K43.9 Ventral hernia without obstruction or gangrene; M79.7 Fibromyalgia; G89.4 Chronic pain syndrome; M17.0 Bilateral primary osteoarthritis of knee; M19.071 Primary osteoarthritis, right ankle and foot; M19.072 Primary osteoarthritis, left ankle and foot; K82.8 Other specified diseases of gallbladder; M47.9 Spondylosis, unspecified; Z98.84 Bariatric surgery status; Z79.899 Other long term (current) drug therapy; Z88.8 Allergy status to other drugs, medicaments and biological substances
CPT/HCPCS: 81025; 85025

== ENCOUNTER → 2017-02-09 | Outpatient (CLI) | payer MEDICAID ==
[2017-02-09 12:38] VITALS: BP 115/78; PULSE 92; TEMP 98.5; BMI 36.7
--- NOTE | 2017-03-12 20:18 | P.PN ---
Progress Note - Text DATE OF SERVICE: 02/09/2017 CHIEF COMPLAINT: Follow-up panniculectomy. HISTORY OF PRESENT ILLNESS: Letty Little is a 41-year-old female status post Ashwini-en-Y gastric bypass in September 21, 2015. Her initial weight was 325 pounds for her 5 foot 6 frame. Her ideal body weight is 154 pounds. She is status post panniculectomy now postoperative day #4. Today she comes in with 127 pounds. Her pain is controlled. She is ambulating. No reports of shortness of breath. No reports of cellulitis or infection. She has moderate drainage from her MARYLOU. Today she comes in weighing 227 pounds. She has gained 5 pounds in 1 month. Her total weight loss is 98 pounds. Percent excess weight loss is 57% . Body mass index is reduced from 52.6 down to 36.7. PHYSICAL EXAM: VITAL SIGNS: 5 foot 6, 227 pounds. Body mass index 36.7. Vital Signs 02/09/17 12:34 Temperature 98.5 F Pulse Rate 92 Blood Pressure 115/78 ABDOMEN: Soft, nontender. Incisions clean dry and intact. No signs of infection or cellulits. MARYLOU is serosanguineous. Abdominal binder intact. Dressings were discontinued. GENERAL: Well-developed female in no acute distress. MUSCULOSKELETAL: No clubbing, cyanosis, or edema. CARDIOVASCULAR: Regular rate. Regular rhythm. HEENT: No sclerae icterus. Extraocular movements grossly intact. Moist buccal mucosa. NECK: Supple without lymphadenopathy. CHEST: Nonlabored respirations with equal bilateral excursions. NEURO: No focal or lateralizing signs. PSYCH: Alert and oriented to person, place and time. ASSESSMENT: 1. Morbid obesity due to excess caloric intake. 2. Body mass index reduced from 52.6 down to 36.7. 3. Status post Ashwini-en-Y gastric bypass. 4. Restless leg syndrome. 5. Resolved obstructive sleep apnea. 6. Resolved diabetes type 2, not insulin-dependent. 7. Resolved hyperlipidemia. 8. Resolved osteoarthritis of lower back. 9. Resolved osteoarthritis of the bilateral knees. 10. Resolved gastroesophageal reflux disease. 11. Panniculitis status post panniculectomy. PLAN: 1. Continue with MARYLOU drain. 2. Continue with abdominal binder. 3. No lifting over 4 pounds in 4 weeks. 4. MARYLOU drain dressings were changed with CHG Tegaderm. 5. Follow-up in office in 1-2 weeks.
== END | disposition home or self-care (01) ==
LOC: BARWHC3 10:27
PROVIDERS: ATTEND Surgery Plastic and Reconstructive Surgery
DX: Z48.817 Encounter for surgical aftercare following surgery on the skin and subcutaneous tissue (principal); M79.3 Panniculitis, unspecified; G25.81 Restless legs syndrome; E66.01 Morbid (severe) obesity due to excess calories; Z68.36 Body mass index [BMI] 36.0-36.9, adult; Z98.890 Other specified postprocedural states; Z98.84 Bariatric surgery status
CPT/HCPCS: 99212

== ENCOUNTER → 2017-02-22 | Outpatient (CLI) | payer MEDICAID ==
--- NOTE | 2017-04-07 01:48 | P.PN ---
Progress Note - Text DATE OF SERVICE: 02/22/2017 CHIEF COMPLAINT: Follow-up panniculectomy. HISTORY OF PRESENT ILLNESS: Letty Little is a 41-year-old female status post Ashwini-en-Y gastric bypass in September 21, 2015. Her initial weight was 325 pounds for her 5 foot 6 frame. Her ideal body weight is 154 pounds. She is status post panniculectomy 02/05/2017. Today she comes in weighing 207 pounds. She is also another 20 pounds in 2 weeks. Her pain is controlled. She is ambulating. No reports of shortness of breath. No reports of cellulitis or infection. Her total weight loss is 118 pounds, lifetime. Percent excess weight loss is 69 % . Body mass index is reduced from 52.6 down to 33.5. PHYSICAL EXAM: VITAL SIGNS: 5 foot 6, 207 pounds. Body mass index 33.5 Vital Signs Temp 98.1 F 02/22/17 09:41 Pulse 88 02/22/17 09:41 Resp 16 02/22/17 09:41 BP 122/66 02/22/17 09:41 Pulse Ox ABDOMEN: Soft, nontender. MARYLOU serosanguineous and discontinued. No signs of infection or cellulitis. GENERAL: Well-developed female in no acute distress. MUSCULOSKELETAL: No clubbing, cyanosis, or edema. CARDIOVASCULAR: Regular rate. Regular rhythm. HEENT: No sclerae icterus. Extraocular movements grossly intact. Moist buccal mucosa. NECK: Supple without lymphadenopathy. CHEST: Nonlabored respirations with equal bilateral excursions. NEURO: No focal or lateralizing signs. PSYCH: Alert and oriented to person, place and time. ASSESSMENT: 1. Morbid obesity due to excess caloric intake. 2. Body mass index reduced from 52.6 down to 33.5. 3. Status post Ashwini-en-Y gastric bypass. 4. Restless leg syndrome. 5. Resolved obstructive sleep apnea. 6. Resolved diabetes type 2, not insulin-dependent. 7. Resolved hyperlipidemia. 8. Resolved osteoarthritis of lower back. 9. Resolved osteoarthritis of the bilateral knees. 10. Resolved gastroesophageal reflux disease. 11. Status post panniculectomy. 12. Hypertensive heart disease resolved. PLAN: 1. Continue with abdominal binder at all times to minimize risk of postoperative seroma. 2. No lifting over 4 pounds in 4 weeks advised. 3. Continue with protein intake over 70 g advised.
== END | disposition home or self-care (01) ==
CPT/HCPCS: 99212

== ENCOUNTER → 2018-02-06 | Outpatient (CLI) | payer MEDICAID ==
[2018-02-06 15:16] VITALS: BP 136/83; PULSE 83; RESP 16; BMI 29.0
--- NOTE | 2018-02-06 15:18 | P.PN ---
Subjective Progress Note Date: 02/06/18 HPI: She is doing well. She had a fall and new bulge of the left lower abdomen. ABDOMEN: New swelling along the left lower abdomen. PLAN: 1. CT of the abdomen/pelvis for incarcerated hernia. 2. Labs yearly. 3. Potential stricture reviewed with EGD if necessary. 4. Heavy menstrual cycles and agreeable with control 5. Moving to [place] and will provide alternative information for bariatric care. ADDENDUM: CT scan reviwed with results discussed with patient over the phone. No additional surgery needed. Objective - Labs CBC & Chem 7: 02/06/18 15:42 02/06/18 15:42
[2018-02-06 15:49] VITALS: TEMP 98.1
[2018-02-06 16:01] LABS: MCH 30.2 pg (25.0-35.0); MCHC 32.7 g/dL (31.0-37.0); MCV 92.5 fL (80.0-100.0); Mean Platelet Volume 8.3; Platelet Count 267 k/uL (150-450); RBC 4.98 m/uL (3.80-5.40); RDW 13.4 % (11.5-15.5); WBC 6.2 k/uL (3.8-10.6)
[2018-02-06 16:09] LABS: INR 1.1 (<1.2); Prothrombin Time 10.7 sec (9.0-12.0)
[2018-02-06 16:23] LABS: ALT 47 U/L (9-52); AST 34 U/L (14-36); Albumin 4.8 g/dL (3.5-5.0); Alkaline Phosphatase 55 U/L (38-126); Anion Gap 8 mmol/L; Blood Urea Nitrogen 7 mg/dL (7-17); Calcium 9.7 mg/dL (8.4-10.2); Carbon Dioxide 28 mmol/L (22-30); Chloride 107 mmol/L (98-107); Cholesterol 140 mg/dL (<200); Glucose 93 mg/dL (74-99); HDL Cholesterol 55 mg/dL (40-60); LDL Cholesterol,Calculated 70 mg/dL (0-99); Magnesium 2.2 mg/dL (1.6-2.3); Potassium 4.2 mmol/L (3.5-5.1); Sodium 143 mmol/L (137-145); Total Bilirubin 0.5 mg/dL (0.2-1.3); Total Protein 7.6 g/dL (6.3-8.2); Triglycerides 73 mg/dL (<150)
--- NOTE | 2018-02-06 16:33 | CT ---
EXAMINATION TYPE: CT abdomen pelvis wo con DATE OF EXAM: 02/06/2018 HISTORY: abdominal pain following injury. hx of multiple bariatric surgeries CT DLP: 485.7 mGycm. Automated Exposure Control for Dose Reduction was Utilized. TECHNIQUE: CT scan of the abdomen and pelvis is performed without oral or IV contrast. COMPARISON: NONE FINDINGS: Within the limitations of a non-contrast study, the following observations are made. LUNG BASES: No significant abnormality is appreciated. LIVER/GB: No significant abnormality is appreciated. PANCREAS: No significant abnormality is seen. SPLEEN: No significant abnormality is seen. ADRENALS: Slightly low intense thickening of both adrenal glands favors benign hyperplasia. KIDNEYS: No renal calculi or hydronephrosis is present bilaterally. No intraluminal calculus in the b ladder is seen. BOWEL: Normal-appearing appendix is seen extending centrally from base of cecum. No suspicious small or large bowel dilatation. Surgical sutures epigastric region from gastric bypass procedure are noted . GENITAL ORGANS: Anteverted uterus is seen. Fluid-filled distal small bowel bowel fills the pelvic cul -de-sac. LYMPH NODES: No greater than 1cm abdominal or pelvic lymph nodes are appreciated. OSSEOUS STRUCTURES: No significant abnormality is seen. OTHER: No significant additional abnormality is seen. IMPRESSION: No significant acute finding identified to account for patient's symptoms of the anterior abdominal pain. No suspicious ventral wall hernia identified.
[2018-02-07 00:57] LABS: Iron Saturation 17.54 (12.00-45.00)
[2018-02-07 01:07] LABS: Folate, Serum 21.3 ng/mL; Vitamin D 25 Hydroxy 74.7 ng/mL (30.0-100.0)
[2018-02-07 01:17] LABS: Parathyroid Hormone Intact 92.8 pg/mL (14.0-72.0)
[2018-02-07 02:14] LABS: Hemoglobin A1C 5.1 % (4.0-6.0)
[2018-02-07 11:47] LABS: Vitamin B1 75 ug/L (38-122)
[2018-02-08 05:53] LABS: Vitamin A 44 ug/dL (38-106)
[2018-02-08 11:13] LABS: Zinc, Serum 84 ug/dL (60-130)
== END | disposition home or self-care (01) ==
LOC: BARWHC3 13:56
PROVIDERS: ATTEND Surgery Plastic and Reconstructive Surgery
DX: R19.04 Left lower quadrant abdominal swelling, mass and lump (principal)
CPT/HCPCS: 36415; 74176; 80053; 80061; 82306; 82525; 82607; 82728; 82746; 83036; 83540; 83550; 83735; 83970; 84100; 84134; 84255; 84425; 84443; 84590; 84630; 85027; 85610; 85730; 99211